=== PATIENT | male | born 1995 | race Caucasian/White ===

== ENCOUNTER 2019-09-25 10:56 | Emergency (ER) | payer SELFPAY ==
[~2019-09-25] VITALS: Ht 175.3 cm; Wt 81.6 kg
--- NOTE | 2019-09-25 10:56 | NUR ---
Patient BIB [facility] for pre-booking medical evaluation, transferred to bed 11. RN evaluating patient at bedside.
[2019-09-25 10:57] VITALS: BP 147/91
--- NOTE | 2019-09-25 11:00 | NUR ---
[facility] FOR MEDICAL CLEARANCE. PT C/O L EYE REDNESS. PT STATES "IT HAS BEEN LIKE THIS FOR A WEEK, I DONT KNOW WHAT HAPPENED." DENIES VISION CHANGES.
--- NOTE | 2019-09-25 11:05 | NUR ---
DR. GOSS EVALUATING PT
[2019-09-25 11:26] VITALS: BP 147/91
--- NOTE | 2019-09-25 11:30 | NUR ---
Patient discharged with v/s stable. Written and verbal after care instructions given and explained. Patient verbalized understanding. Ambulatory with steady gait, ESCORTED BY MABEL CERVANTES. All questions addressed prior to discharge. Advised to follow up with PMD.
== END 2019-09-25 11:30 ==
LOC: MED 10:56
DX: H11.32 Conjunctival hemorrhage, left eye (principal); R03.0 Elevated blood-pressure reading, without diagnosis of hypertension; Z02.89 Encounter for other administrative examinations
CPT/HCPCS: 99283